=== PATIENT | female | born 1995 | race Caucasian/White ===

== ENCOUNTER 2017-04-30 18:22 | Emergency (ER) | payer OTHER ==
[~2017-04-30] VITALS: Ht 170.2 cm; Wt 69.9 kg
[2017-04-30 18:41] VITALS: BP 141/90
== END 2017-04-30 20:03 | disposition home or self-care (01) ==
LOC: ED 20:01
DX: S16.1XXA Strain of muscle, fascia and tendon at neck level, initial encounter (principal); S09.90XA Unspecified injury of head, initial encounter; V89.2XXA Person injured in unspecified motor-vehicle accident, traffic, initial encounter; Y93.89 Activity, other specified; Y92.410 Unspecified street and highway as the place of occurrence of the external cause; Y99.8 Other external cause status
CPT/HCPCS: 70450; 99284

== ENCOUNTER 2017-10-01 17:50 | Emergency (ER) | payer OTHER ==
[~2017-10-01] VITALS: Ht 170.2 cm; Wt 69.4 kg
[2017-10-01 17:55] VITALS: BP 142/94
[2017-10-01 19:00] LABS: BASOPHILS # (AUTO) 0.08 x10^3/uL (0-0.1); BASOPHILS % (AUTO) 1 % (0-1); EOSINOPHILS # (AUTO) 0.07 x10^3/uL (0-0.4); EOSINOPHILS % (AUTO) 1 % (1-7); LYMPHOCYTES # (AUTO) 2.42 x10^3/uL (1-3.4); LYMPHOCYTES % (AUTO) 23 % (22-44); MD NO; MEAN CORPUSCULAR HEMOGLOBIN 31.4 pg (27.0-34.8); MEAN CORPUSCULAR HGB CONC 33.9 g/dL (32.4-35.8); MEAN CORPUSCULAR VOLUME 92.8 fL (80-100); MONOCYTES # (AUTO) 0.54 x10^3/uL (0.2-0.8); MONOCYTES % (AUTO) 5 % (2-9); NEUTROPHILS # (AUTO) 7.44 x10^3/uL (1.8-6.8); NEUTROPHILS % (AUTO) 71 % (42-75); PLATELET COUNT 209 x10^3/uL (130-400); RED CELL DISTRIBUTION WIDTH 13.5 % (9.6-15.2)
[2017-10-01 19:13] LABS: ALANINE AMINOTRANSFERASE 20 U/L (12-78); ALBUMIN 4.1 g/dL (3.4-5.0); ANION GAP 6 mmol/L (5-15); CALCIUM 9.3 mg/dL (8.5-10.1); CHLORIDE 105 mmol/L (98-107); CREATININE 0.87 mg/dL (0.55-1.02)
[2017-10-01 19:17] LABS: ALKALINE PHOSPHATASE 79 U/L (45-117); BILIRUBIN,TOTAL 0.3 mg/dL (0.2-1.0); TOTAL PROTEIN 7.5 g/dL (6.4-8.2)
== END 2017-10-01 20:30 | disposition home or self-care (01) ==
LOC: ED 20:20
DX: K92.2 Gastrointestinal hemorrhage, unspecified (principal)
CPT/HCPCS: 36415; 74021; 80053; 83690; 84703; 85025; 99285

== ENCOUNTER 2018-08-11 07:13 | Emergency (ER) | payer OTHER ==
[~2018-08-11] VITALS: Ht 170.2 cm; Wt 78.1 kg
--- NOTE | 2018-08-11 07:37 | NUR ---
PT AMBULATORY TO ROOM 4 W/ C/O CP AND SOB ONSET THIS AM. PT DENIES ANY CARDIAC/PULM HX. PT STATES SHE HAS HORMONAL IUD. PER PT SMOKES CIGARETTES OCCASSIONALLY AND DOES COCAINE OCCASIONALLY. SASKIA MARQUEZ AWARE. PT RESTING ON GURNEY. NADN. MONITORS APPLIED. WARM BLANKET PROVIDED.
--- NOTE | 2018-08-11 08:10 | NUR ---
PT RESTING ON GURNEY. NADN. FERNANDEZ.
[2018-08-11 08:45] LABS: BASOPHILS # (AUTO) 0.03 x10^3/uL (0-0.1); BASOPHILS % (AUTO) 0 % (0-1); EOSINOPHILS # (AUTO) 0.03 x10^3/uL (0-0.4); EOSINOPHILS % (AUTO) 0 % (1-7); LYMPHOCYTES # (AUTO) 1.21 x10^3/uL (1-3.4); LYMPHOCYTES % (AUTO) 16 % (22-44); MD NO; MEAN CORPUSCULAR HEMOGLOBIN 32.2 pg (27.0-34.8); MEAN CORPUSCULAR HGB CONC 34.9 g/dL (32.4-35.8); MEAN CORPUSCULAR VOLUME 92.2 fL (80-100); MEAN PLATELET VOLUME 8.9 fL (7.4-10.4); MONOCYTES # (AUTO) 0.41 x10^3/uL (0.2-0.8); MONOCYTES % (AUTO) 5 % (2-9); NEUTROPHILS # (AUTO) 6.13 x10^3/uL (1.8-6.8); NEUTROPHILS % (AUTO) 79 % (42-75); PLATELET COUNT 196 x10^3/uL (130-400); RED BLOOD COUNT 4.31 x10^6/uL (3.82-5.3); RED CELL DISTRIBUTION WIDTH 12.6 % (9.6-15.2)
[2018-08-11 08:51] LABS: ALBUMIN 3.8 g/dL (3.4-5.0); ANION GAP 7 mmol/L (5-15); CALCIUM 8.9 mg/dL (8.5-10.1); CHLORIDE 110 mmol/L (98-107); CREATININE 0.92 mg/dL (0.55-1.02)
[2018-08-11 08:55] LABS: TROPONIN I < 0.015 ng/mL (0.000-0.045)
--- NOTE | 2018-08-11 09:02 | NUR ---
PT RESTING ON GURNEY. NADN. FERNANDEZ.
[2018-08-11 10:04] VITALS: BP 17/76
== END 2018-08-11 10:11 | disposition home or self-care (01) ==
LOC: ED 10:05
DX: R07.89 Other chest pain (principal)
CPT/HCPCS: 36415; 71046; 80048; 82040; 84484; 85025; 85379; 93005; 99284

== ENCOUNTER 2019-10-09 13:01 | Emergency (ER) | payer OTHER ==
[~2019-10-09] VITALS: Ht 172.7 cm; Wt 76.0 kg
--- NOTE | 2019-10-09 13:36 | NUR ---
PT PRESENTS TO ED WITH STRESS REACTION, CONTRACTURES TO BILATERAL HANDS. PT REPORTS INCREASED STRESS AND RECENT CESSATION OF CIGARETTES AND [place] USE X2 DAYS. DECREASED STRAIN IN HANDS, PT ABLE TO RELAX NOW. NAD NOTED AT THIS TIME. SOME CP PERSISTS. ERMD IN TO ASSESS PT. AWAITING ORDERS.
[2019-10-09 13:55] LABS: BASOPHILS # (AUTO) 0.02 x10^3/uL (0-0.1); BASOPHILS % (AUTO) 0 % (0-1); EOSINOPHILS % (AUTO) 0 % (1-7); LYMPHOCYTES # (AUTO) 1.46 x10^3/uL (1-3.4); LYMPHOCYTES % (AUTO) 14 % (22-44); MD NO; MEAN CORPUSCULAR HEMOGLOBIN 30.8 pg (27.0-34.8); MEAN CORPUSCULAR HGB CONC 32.9 g/dL (32.4-35.8); MEAN CORPUSCULAR VOLUME 93.7 fL (80-100); MEAN PLATELET VOLUME 8.6 fL (7.4-10.4); MONOCYTES # (AUTO) 0.33 x10^3/uL (0.2-0.8); MONOCYTES % (AUTO) 3 % (2-9); NEUTROPHILS # (AUTO) 8.39 x10^3/uL (1.8-6.8); NEUTROPHILS % (AUTO) 82 % (42-75); PLATELET COUNT 255 x10^3/uL (130-400); RED BLOOD COUNT 4.88 x10^6/uL (3.82-5.3); RED CELL DISTRIBUTION WIDTH 12.6 % (9.6-15.2)
[2019-10-09 14:06] LABS: ALANINE AMINOTRANSFERASE 23 U/L (12-78); ALBUMIN 4.7 g/dL (3.4-5.0); ANION GAP 9 mmol/L (5-15); CALCIUM 9.3 mg/dL (8.5-10.1); CHLORIDE 108 mmol/L (98-107); CREATININE 1.13 mg/dL (0.55-1.02)
[2019-10-09 14:12] LABS: ALKALINE PHOSPHATASE 91 U/L (45-117); BILIRUBIN,TOTAL 0.6 mg/dL (0.2-1.0); TOTAL PROTEIN 8.6 g/dL (6.4-8.2); TROPONIN I < 0.015 ng/mL (0.000-0.045)
[2019-10-09] MEDS ORDERED: DIAZEPAM 5 MG/ML, 2ML ONE (14:19)
--- NOTE | 2019-10-09 14:20 | NUR ---
REPORT RC'VD FROM [facility] AND CARE OF PT ASSUMED. PT STATES, "I FEEL IT (PANIC ATTACK) COMING ON AGAIN". REQUESTS SOMETHING FOR ANXIETY. STATES, "IT FEELS LIKE I HAVE A LACK OF CO2 AND MY MUSCLES START SPASMING." REPORTS SHE'S NOT UNDER ANY MORE STRESS THAN USUAL. STATES SHE DID TRY TO QUIT SMOKING A FEW DAYS AGO. ERP UPDATED ON PT STATUS.
--- NOTE | 2019-10-09 14:40 | NUR ---
PT MEDICATED WITH VALIUM IM PER ORDERS. ALL MONITORS IN PLACE. RV'WD POC WITH HER. SIGNIFICANT OTHER AT BS.
[2019-10-09] MEDS ORDERED: ONDANSETRON ODT 4 MG ONE (14:48)
[2019-10-09] MEDS ORDERED: POTASSIUM CHLORIDE 20 MEQ TAB.ER.PRT ONE (14:48)
--- NOTE | 2019-10-09 14:53 | NUR ---
PT REPORTS SHE FEELS BETTER AFTER VALIUM. TALKING WITH SIGNIFICANT OTHER. MEDICATED WITH POTASSIUM AND ZOFRAN PER ORDERS. RV'WD POC WITH HER.
[2019-10-09] MEDS ORDERED: DIAZEPAM 5 MG/ML, 2ML IM ONE (15:00)
[2019-10-09] MEDS ORDERED: POTASSIUM CHLORIDE 20 MEQ TAB.ER.PRT PO ONE (15:00)
[2019-10-09] MEDS ORDERED: ONDANSETRON ODT 4 MG PO ONE (15:00)
[2019-10-09 15:30] VITALS: BP 135/72
--- NOTE | 2019-10-09 15:40 | NUR ---
PT STATES SHE WANTS TO GO HOME, STATES SHE WILL F/U WITH BEHAV[facility] AT [facility]. ERP NOTIFIED.
--- NOTE | 2019-10-09 16:12 | NUR ---
PT DECLINED ASSESSMENT WITH [employer]S LICENSE DRIVER HERE, STATES SHE WILL F/U ON HER OWN. D/C INSTRUCTIONS, MEDS & F/U APPT RV'WD WITH PT, SHE VERBALIZES UNDERSTANDING. RX GIVEN X1. PT AMBULATED OUT OF ED WITH SIGNIFICANT OTHER WITHOUT DIFFICULTY.
== END 2019-10-09 16:13 | disposition home or self-care (01) ==
LOC: ED 15:02
DX: F41.1 Generalized anxiety disorder (principal); R06.4 Hyperventilation; I25.2 Old myocardial infarction
CPT/HCPCS: 36415; 71045; 80053; 83880; 84484; 85025; 93005; 96372; 99285; J3360; Q0162